=== PATIENT | male | born 1950 | race Caucasian/White ===

== ENCOUNTER 2019-09-01 07:54 | Outpatient (CLI) | payer OTHER, SELFPAY ==
--- NOTE | ~2019-09-01 | CT_ITS ---
EXAMINATION: CT abdomen pelvis w con DATE: 09/01/2019 08:55 INDICATION: Prostate cancer TECHNIQUE: Computed tomography (CT) of the abdomen and pelvis was performed with 100 cc Omnipaque 350 intravenous contrast. The dose-length product was 380.85 mGy-cm. Automated exposure control and iter ative reconstruction technique were employed. COMPARISON: None. FINDINGS: Lung bases are unremarkable. Heart size normal. No significant pleural or pericardial effus ion. Calcified granuloma in the spleen. The liver, pancreas, adrenal glands are unremarkable. There are bi lateral renal cysts. Gallbladder is present. No osteolytic or osteoblastic lesions. Nonobstructive mason wel gas pattern. There is atherosclerosis of the aorta. No free air or free fluid. Enlarged prostate gland. Bladder is decompressed. No abnormal pelvic masses or fluid collections. IMPRESSION: 1. No evidence for metastatic disease. 2: Enlarged prostate gland. Reviewed, dictated and finalized at location B.
--- NOTE | ~2019-09-01 | NM_ITS ---
EXAMINATION: NM bone scan whole body DATE: 09/01/2019 14:24 INDICATION: Prostate cancer TECHNIQUE: 25 mCi Tc-99m HDP was administered intravenously. Delayed whole-body scintigrams were obt ained. COMPARISON: CT abdomen and pelvis dated 09/01/2019 FINDINGS: Physiologic distribution of bone and soft tissue uptake. No suspicious photopenic defects or foci of abnormal increased uptake to suggest osseous metastatic disease. IMPRESSION: 1. Normal study. No evident metastatic disease. Reviewed, dictated and finalized at location A.
[2019-09-01 08:41] LABS: Estimated Glomerular Filt Rate 47
== END 2019-09-01 07:55 | disposition home or self-care (01) ==
LOC: ANHIMG 08:04
PROVIDERS: Visit Provider Urology
DX: C61 Malignant neoplasm of prostate (principal); N40.0 Benign prostatic hyperplasia without lower urinary tract symptoms
CPT/HCPCS: 36415; 74177; 78306; A9561; Q9967

== ENCOUNTER 2019-10-04 11:55 | Outpatient (CLI) | payer OTHER, SELFPAY ==
--- NOTE | ~2019-10-04 | XR_ITS ---
EXAMINATION: XR chest 2V DATE: 10/04/2019 13:36 INDICATION: Prostate cancer TECHNIQUE: PA and lateral views of the chest are obtained. COMPARISON: None available FINDINGS: The lungs are free of acute opacities. There is no pleural effusion or pneumothorax. The ca rdiomediastinal silhouette is normal. There is mild thoracic spondylosis. IMPRESSION: 1. No acute cardiopulmonary abnormality. Reviewed, dictated and finalized at location A.
--- NOTE | 2019-10-04 13:06 | ECG_ITS ---
Measurements Intervals [place] Rate: 62 P: 64 [place]: 167 QRS: -44 QRSD: 122 T: 23 QT: 412 QTc: 420 Interpretive Statements SINUS RHYTHM LEFT AXIS DEVIATION INCOMPLETE RIGHT BUNDLE BRANCH BLOCK BASELINE ARTIFACT- I, II, III, AVR, AVL, AVF BORDERLINE ECG Electronically Signed On 10-04-2019 13:31:45 CDT by Patel Rodriguez D.O.
[2019-10-04 13:59] LABS: Basophils Absolute Auto 0.1 K/mm3 (0.0-0.1); Basophils Percent Auto 0.9 % (0.2-1.2); Eosinophils Absolute Auto 0.2 K/mm3 (0-0.3); Eosinophils Percent Auto 3.1 % (0-4.4); Hematocrit 41.8 % (42.0-52.0); Hemoglobin 14.3 g/dL (14.0-18.0); Immature Granulocyte Absolute 0.02 K/mm3 (0.00-0.031); Immature Granulocyte Percent A 0.3 % (0-0.5); Lymphocytes Absolute Auto 1.94 K/mm3 (0.9-3.2); Lymphocytes Percent Auto 29.8 % (18.3-44.2); Mean Corpuscular HGB Conc 34.2 g/dl (32-36); Mean Corpuscular Hemoglobin 29.7 pg (26-34); Mean Corpuscular Volume 86.7 fl (80-100); Mean Platelet Volume 10.5 fl (7.4-10.4); Monocytes Absolute Auto 0.9 K/mm3 (0.1-0.6); Monocytes Percent Auto 13.5 % (2.6-8.5); Neutrophils Absolute Auto 3.4 K/mm3 (1.3-6.7); Neutrophils Percent Auto 52.4 % (45.5-73.1); Platelet Count Result 185 k/mm3 (150-375); Red Blood Count 4.82 M/mm3 (4.6-6.20); Red Cell Distribution Width 12.9 % (11.5-14.5); White Blood Count 6.5 K/mm3 (4.5-10.0)
[2019-10-04 14:00] LABS: Add Urine Microscopic? NO; Appearance Urine Clear (Clear); Bilirubin Urine Negative (Negative); Blood Urine Negative (Negative); Color Urine Straw (Yellow); Glucose Urine UA Negative (Negative); Ketones Urine Negative (Negative); Leukocyte Esterase Ur Negative LEU/UL (Negative); Nitrate Urine Negative (Negative); Protein Urine Negative (Negative); Specific Grav Ur 1.014 (1.001-1.035); Urobilinogen Urine Negative mg/dL (<2.0)
[2019-10-04 14:04] LABS: Prothrombin Time 12.6 Seconds (11.1-14.7)
[2019-10-04 14:05] LABS: Partial Thromboplastin Time 29.7 SECONDS (22.3-36.8)
[2019-10-04 14:07] LABS: Alanine Aminotransferase 18 U/L (4-50); Albumin Level 4.2 g/dL (3.5-5.1); Alkaline Phosphatase 91 U/L (38-126); Anion Gap 7 mmol/L (8-16); Aspartate Amino Transferase 26 U/L (17-59); Bilirubin,Total < 0.1 mg/dL (0.2-1.3); Blood Urea Nitrogen 18 mg/dL (9-20); Calcium 9.3 mg/dL (8.4-10.2); Carbon Dioxide 34 mmol/L (22-30); Chloride 99 mmol/L (98-107); Estimated Glomerular Filt Rate 51; Glucose 106 mg/dL (75-110); Potassium 3.9 mmol/L (3.4-5.0); Sodium 140 mmol/L (137-145)
== END 2019-10-04 11:56 | disposition home or self-care (01) ==
LOC: ANHSURGERY 11:57
PROVIDERS: PCP Internal Medicine; Visit Provider Urology
DX: C61 Malignant neoplasm of prostate (principal); Z01.812 Encounter for preprocedural laboratory examination; I45.10 Unspecified right bundle-branch block
CPT/HCPCS: 36415; 71046; 80053; 81003; 85025; 85610; 85730; 86850; 86900; 86901; 93005

== ENCOUNTER 2019-10-12 02:05 | Outpatient (CLI) | payer OTHER, SELFPAY ==
[2019-10-12 18:23] LABS: SARS-CoV-2 RNA PCR Negative
== END 2019-10-12 02:06 | disposition home or self-care (01) ==
LOC: ANHCOVIDDT 02:05
PROVIDERS: Visit Provider Urology
DX: Z01.812 Encounter for preprocedural laboratory examination (principal); Z20.828 Contact with and (suspected) exposure to other viral communicable diseases
CPT/HCPCS: 87635; C9803; U0003

== ENCOUNTER 2019-10-14 00:43 | Day surgery (SDC) | payer OTHER, SELFPAY ==
[2019-10-04 13:04] VITALS: BP 137/86; PULSE 64; RESP 16; TEMP 37.2; O2SAT 100
--- NOTE | 2019-10-07 13:36 | PM.IMHP ---
H&P: HPI History of Present Illness Date/Time: 10/07/19 13:36 Chief complaint: Prostate Ca Narrative: Rito Rodriguez is a 68 year old male who recently underwent evaluation for a PSA of 5.8. Prostate biopsy demonstrated 2 of 12 cores with Charlette score 3+4=7 and 4+3=7 adenocarcinoma. On ultrasonography his prostate measured 44.2 g.This equates to an unfavorable intermediate risk prostate cancer. Staging CT scan of the abdomen and pelvis and bone scan showed no evidence of metastatic disease. After a thorough discussion of the therapeutic options, including pelvic radiation, radical prostatectomy, active surveillance and androgen ablation he has elected for a prostatectomy. He is aware of the risk of this including, but not limited to, adverse cardiopulmonary events rectal injury erectile dysfunction and urinary incontinence. Review of Systems Cardiovascular: Cardiovascular: Denies chest pain, Denies lightheadedness, Denies palpitations and Denies dyspnea Respiratory: Respiratory: Denies dyspnea Gastrointestinal: Gastrointestinal: Denies diarrhea, Denies nausea and Denies vomiting Genitourinary: Genitourinary: Denies hematuria and Denies dysuria Endocrine: Endocrine: Denies palpitations PMFSH Social History Social History Smoking status: Never smoker Alcohol intake: never Substance use: never Spiritual care concerns: No Meds Home Medications and Allergies Home Medications Medication Instructions Recorded Confirmed Type alum-mag hydroxide-simeth [Maalox 7.5 ml PO QID PRN 10/04/19 10/04/19 History Maximum Strength] aspirin [Aspir-81] 81 mg PO DAILY 10/04/19 10/04/19 History calcium carbonate [Tums] 300 mg PO BID PRN 10/04/19 10/04/19 History cimetidine [Tagamet HB] 200 mg PO QID 10/04/19 10/04/19 History esomeprazole magnesium [Nexium] 20 mg PO DAILY 10/04/19 10/04/19 History fluticasone propionate 1 spray INTRANASAL DAILY 10/04/19 10/04/19 History lorazepam 1 mg PO DAILY PRN 10/04/19 10/04/19 History minoxidil [Rogaine] 1 ml TOPICAL BID 10/04/19 10/04/19 History dtgxtkiv-lck-FW-lycopen-lutein 1 tablet PO DAILY 10/04/19 10/04/19 History [Centrum Silver] olopatadine 1 drp OPHTHALMIC (EYE) QAM 10/04/19 10/04/19 History omega 1-hra-xqi-fish oil [[place]-3 1 cap PO DAILY 10/04/19 10/04/19 History Fish Oil] paroxetine HCl 40 mg PO QAM 10/04/19 10/04/19 History simethicone 250 mg PO TID 10/04/19 10/04/19 History triamterene-hydrochlorothiazid 1 tablet PO QAM 10/04/19 10/04/19 History Allergies Allergy/AdvReac Type Severity Reaction Status Date / Time Fish Containing Products Allergy Intermediate Rash Verified 10/04/19 12:23 Penicillins Allergy Unknown Unknown Verified 10/04/19 12:21 Sulfa (Sulfonamide Allergy Unknown RASH AND Unverified 10/04/19 12:21 Antibiotics) LEG PAIN Exam Const: General: no acute distress Resp: Effort & Inspection: normal respiratory effort GI: Inspection: non-distended GI Palp: No abdominal tenderness and No Guarding due to palpation present (GI) Auscultation: normal bowel sounds Assessment and Plan Assessment and plan (1) Prostate cancer: Code(s): C61 - Malignant neoplasm of prostate Status: Acute Assessment and Plan: Robotic assisted radical prostatectomy with bilateral pelvic lymphadenectomy.
[2019-10-14] VITALS (15 sets, daily range): BP systolic 108–156; BP diastolic 55–98; PULSE 77–94; RESP 14–20; TEMP 36.2–36.8; O2SAT 94–100; BMI 24.0
[2019-10-14] MEDS: LACTATED RINGERS 1,000 ML 30 ML IV CONT ×3 (06:37→11:01)
--- NOTE | 2019-10-14 06:43 | WPDANESEPPF ---
Anes - Initial Pre Proc Eval Procedure: Operation Date: 10/14/19 07:30 Proposed Procedures p Robotic Assisted Prostatectomy, Bilateral Pelvic Lymphadenectomy - Lenin Araujo MD Date/Time: 10/14/19 06:43 Surgeon: Lenin Araujo MD Pre Op Diagnosis: Prostate Ca Patient Data Age: 68 Gender: M Height: 5 ft 9 in Weight: 73.7 kg Last Vital Signs Temp 37.2 C 10/04/19 13:04 Pulse 64 10/04/19 13:04 Resp 16 10/04/19 13:04 BP 137/86 10/04/19 13:04 Pulse Ox 100 10/04/19 13:04 Allergies Allergy/AdvReac Type Severity Reaction Status Date / Time Fish Containing Products Allergy Intermediate Rash Verified 10/14/19 06:21 Penicillins Allergy Unknown Unknown Verified 10/14/19 06:21 Sulfa (Sulfonamide Allergy Unknown RASH AND Verified 10/14/19 06:21 Antibiotics) LEG PAIN Home Medications Medication Instructions Recorded Confirmed Type alum-mag hydroxide-simeth [Maalox 7.5 ml PO QID PRN 10/04/19 10/14/19 History Maximum Strength] aspirin [Aspir-81] 81 mg PO DAILY 10/04/19 10/14/19 History calcium carbonate [Tums] 300 mg PO BID PRN 10/04/19 10/14/19 History cimetidine [Tagamet HB] 200 mg PO QID 10/04/19 10/14/19 History esomeprazole magnesium [Nexium] 20 mg PO DAILY 10/04/19 10/14/19 History fluticasone propionate 1 spray INTRANASAL DAILY 10/04/19 10/14/19 History lorazepam 1 mg PO DAILY PRN 10/04/19 10/14/19 History minoxidil [Rogaine] 1 ml TOPICAL BID 10/04/19 10/14/19 History jezzdwyu-wgz-SL-lycopen-lutein 1 tablet PO DAILY 10/04/19 10/14/19 History [Centrum Silver] olopatadine 1 drp OPHTHALMIC (EYE) QAM 10/04/19 10/14/19 History omega 4-alb-baw-fish oil [[place]-3 1 cap PO DAILY 10/04/19 10/14/19 History Fish Oil] paroxetine HCl 40 mg PO QAM 10/04/19 10/14/19 History simethicone 250 mg PO TID 10/04/19 10/14/19 History triamterene-hydrochlorothiazid 1 tablet PO QAM 10/04/19 10/14/19 History Patient hx anesthesia problems: none Family hx anesthesia problems: none [facility] Past Medical History Medical History Anxiety Depression GERD (gastroesophageal reflux disease) Hypertension Prostate cancer Social History Social History Smoking status: Never smoker Alcohol intake: never Substance use: never Living arrangements: alone Spiritual care concerns: No Anes - Eval Final PreProcedure Day of Procedure 10/14/19 06:43 Patient weight: normal Heart: regular rate and rhythm Lungs: clear to auscultation Airway: Mallampati scale class III Neurological: alert and oriented Last oral intake: >/= 8 hours ASA classification: III Emergent: no Anesthetic plan: proceed Anesthesia type and monitoring: general ETT and standard monitoring Informed Consent: The patient's anesthetic plan and its attendant risks and benefits were discussed with the patient/family/POA. Questions were solicited and answers provided to the satisfaction of the patient/family/POA.
--- NOTE | 2019-10-14 06:43 | SUR.PREOP ---
DR HAQUE NOTIFIED OF PT'S SORE THROAT.
--- NOTE | 2019-10-14 07:21 | WPDHPUPDATE1 ---
History and Physical Update Update Date/Time: 10/14/19 07:21 History and Physical has been reviewed, including an updated exam of the patient. There are NO changes in the patient's condition. Risks, benefits, and alternatives have been discussed and questions answered. Patient agrees to proceed with procedure.
[2019-10-14] MEDS: levoFLOXacin 500 MG/D5W 100 ML 500 MG/100 ML BAG 100 MG IVPB (07:26)
--- NOTE | 2019-10-14 10:53 | PM.PROC ---
Procedure Note - Detailed Date of procedure: 10/14/19 Pre-op diagnosis: Prostate Ca Post-op diagnosis: same Procedure performed: 1. Robotic assisted, bilateral nerve-sparing radical prostatectomy 2. Bilateral pelvic lymphadenectomy. Description of procedure: The patient was brought to the operative suite, where he was prepped and draped in routine sterile fashion while in a dorsal lithotomy, deep Trendelenburg position. A supraumbilical 10 mm trocar was placed after insufflation of the abdomen with a Veress needle. Three robotic ports were then placed under direct vision. Two of these were placed in the right lower quadrant - 10 cm and 20 cm lateral to, and in line with, the umbilicus. A third robotic trocar was placed 10 cm to the left of the umbilicus, and 20 cm to the left of the umbilicus, a 12 mm standard laparoscopic trocar was placed to be used as an email marketing assistant port. Lastly, a 5 mm trocar was placed in the left upper quadrant midway between the umbilicus and the left robotic trocar. Attention was then turned to the prostatectomy. I opted for a posterior approach in this patient. An incision was made in the parietal peritoneum along the posterior bladder/posterior prostate about 2 cm above the reflection of the peritoneum over the anterior rectum. The seminal vesicles and vas deferens were immediately identified. Dissection is undertaken in a fashion so as to avoid electrocautery as much as possible, particularly near the tips of the seminal vesicles. Dissection was also carried out in the midline so as to avoid any encounters with the ureters. The vas deferens and the seminal vesicles were dissected in their entirety to the base of the prostate. The plane anterior to Denoviller's fascia, anterior to the rectum and posterior to the prostate was then developed. I then dropped the bladder by incising the anterior parietal peritoneum just lateral to the median umbilical ligaments bilaterally. The bladder was dropped from the anterior abdominal and pelvic wall. The endopelvic fascia was identified and incised bilaterally, allowing for dissection of the posterior-lateral aspect of the prostate. The puboprostatic ligaments were transected near their origin from the posterior pubic ramus. This posterior lateral dissection of the prostate is also undertaken in a fashion so as to avoid electrocautery as much as possible. The dorsal vein of the penis is then secured with an 0 -Vicryl ligature. Attention is then turned to the bladder neck. The anterior bladder neck is incised at the vesico-prostatic junction. The previously placed urethral catheter was drawn through the urethrotomy. A very small bladder neck was maintained throughout the remainder of this dissection. The posterior bladder neck was incised in a fashion so as to avoid any injury to the ureteral orifices. Again, the small aperture of the bladder neck was maintained. The previously dissected vas deferens and the seminal vesicles were brought through the posterior bladder neck incision. The lateral prostatic pedicles were then carefully dissected from the lateral aspect of the prostate bilaterally. The prostatic pedicles were secured with Weck clips and transected. The neurovascular bundles were carefully dissected from the posterior-lateral aspect of the prostate. The dorsal vein of the penis was incised with electrocautery. Using cold scissors, the urethra was incised. After withdrawing the previously placed urethral catheter, the posterior urethra was sharply incised, as was the rectalurethralis muscle. Attention was then turned to a bilateral pelvic lymphadenectomy. The limits of this dissection were similar bilaterally. Specifically, the limits were the bifurcation of the common iliac vein proximally, the inguinal ligament distally, the obturator nerve posteriorly and the anterior aspect to the external iliac vein laterally. This dissection was undertaken with care to avoid any injury to the
--- NOTE | 2019-10-14 12:55 | PC.NURSE ---
This patient, Rito Rodriguez, was admitted to 3 Med Surg Room 309-01. Patient/family oriented to hospital policies and general routines including ID bracelet, bed and alarms, visiting hours, pain management, procedures, bathroom and other care routines, personal items, smoking policy, room service/diet, and visiting hours. Valuables list has been completed.Report received from Marjorie STAPLETON. Information on how to activate the Rapid Response Team has been discussed. Patient/Family are encouraged to report perceived risks to care and to ask questions if they do not understand what they are told or what they should do.
[2019-10-14] MEDS: LACTATED RINGERS 1,000 ML 125 ML IV CONT ×2 (14:44→21:27)
[2019-10-14] MEDS: HYOSCYAMINE SULFATE 0.125 MG TABLET SUBLINGUAL (14:52)
[2019-10-14] MEDS: KETOROLAC 15 MG/ML VIAL (*BKC) IV PUSH (21:20)
[2019-10-14] MEDS: FAMOTIDINE 20 MG TABLET PO (21:20)
[2019-10-14] MEDS: LORazepam 1 MG TABLET PO (21:20)
[2019-10-14] MEDS: CALCIUM CARBONATE (TUMS) 500 MG (200 MG ELEMENTAL) PO (23:32)
[2019-10-15 02:00] VITALS: BP 120/58; PULSE 81; RESP 16; TEMP 36.4; O2SAT 95
[2019-10-15] MEDS: LACTATED RINGERS 1,000 ML 125 ML IV CONT (04:53)
[2019-10-15 06:00] VITALS: BP 105/56; PULSE 71; RESP 16; TEMP 36.7; O2SAT 99
[2019-10-15 06:48] LABS: Anion Gap 5 mmol/L (8-16); Blood Urea Nitrogen 15 mg/dL (9-20); Calcium 8.1 mg/dL (8.4-10.2); Carbon Dioxide 31 mmol/L (22-30); Chloride 98 mmol/L (98-107); Estimated CRCL calculation 59 ml/min; Estimated Glomerular Filt Rate > 60; Glucose 131 mg/dL (75-110); Potassium 3.5 mmol/L (3.4-5.0); Sodium 134 mmol/L (137-145)
--- NOTE | 2019-10-15 07:01 | WPDUROPN2 ---
Progress Note: A&P Assessment and Plan (1) Prostate cancer: Code(s): C61 - Malignant neoplasm of prostate Status: Acute Assessment and Plan: Doing well POD #1 s/p RALP. Increase diet/activity. Likely home later today. Subjective Subjective Date/Time Seen: 10/15/19 07:01 POD #1 RALP - comfortable, tolerating diet. Review of Systems Cardiovascular: Cardiovascular: Denies chest pain, Denies lightheadedness, Denies palpitations and Denies dyspnea Respiratory: Respiratory: Denies dyspnea Gastrointestinal: Gastrointestinal: Denies diarrhea, Denies nausea and Denies vomiting Genitourinary: Genitourinary: Denies hematuria and Denies dysuria Endocrine: Endocrine: Denies palpitations Exam Const: General: no acute distress Resp: Effort & Inspection: normal respiratory effort GI: Inspection: non-distended GI Palp: No abdominal tenderness and No Guarding due to palpation present (GI) Auscultation: normal bowel sounds Objective Data Vital Signs Vital Signs: Vital Signs - 24 hr 10/14/19 10:46 10/14/19 11:00 10/14/19 11:15 Temperature 97.1 F L Pulse Rate 82 87 89 Respiratory Rate 15 18 19 Blood Pressure 135/57 L 139/75 122/76 Pulse Oximetry 99 98 100 10/14/19 11:30 10/14/19 11:45 10/14/19 12:00 Temperature 97.9 F 98.2 F 98.3 F Pulse Rate 88 87 88 Respiratory Rate 14 16 16 Blood Pressure 149/98 H 127/83 128/69 Pulse Oximetry 100 100 10/14/19 12:15 10/14/19 12:30 10/14/19 12:59 Temperature 97.3 F L 97.5 F L Pulse Rate 85 88 91 Respiratory Rate 16 16 16 Blood Pressure 122/71 126/63 113/65 Pulse Oximetry 95 95 95 10/14/19 13:29 10/14/19 14:29 10/14/19 16:00 Temperature 97.3 F L 97.9 F 98.0 F Pulse Rate 93 94 90 Respiratory Rate 18 18 16 Blood Pressure 108/58 L 122/66 125/65 Pulse Oximetry 94 96 98 10/14/19 20:00 10/14/19 21:36 10/15/19 02:00 Temperature 98.3 F 97.6 F Pulse Rate 89 89 81 Respiratory Rate 20 20 16 Blood Pressure 119/55 L 120/58 L Pulse Oximetry 98 98 95 10/15/19 06:00 Temperature 98.1 F Pulse Rate 71 Respiratory Rate 16 Blood Pressure 105/56 L Pulse Oximetry 99 Intake/Output Intake/Output: Intake & Output 10/12/19 10/13/19 10/14/19 10/15/19 23:59 23:59 23:59 23:59 Intake Total 2070 1500 Output Total 525 1100 Balance 1545 400 Meds/Results Medications: Active Medications Generic Name Dose Route Start Last Admin Trade Name Freq PRN Reason Stop Dose Admin Al Hydrox/Mg Hydrox/Simethicone 7.5 ml 10/14/19 20:01 Mylanta PO QID PRN Indigestion Calcium Carbonate 200 mg 10/14/19 20:01 10/14/19 23:32 Tums PO 200 mg BID PRN Administration Indigestion Famotidine 20 mg 10/14/19 21:00 10/14/19 21:20 Pepcid PO 20 mg Q12HR CHHAYA Administration Fluticasone Propionate 1 spray 10/15/19 09:00 Flonase 0.05% Nasal [place] NASAL DAILY CHHAYA Hyoscyamine 0.125 mg 10/14/19 12:44 10/14/19 14:52 Levsin Tablet SUBLINGUAL 0.125 mg Q4H PRN Administration Bladder Spasm Lactated Ringer's 1,000 mls @ 125 mls/hr 10/14/19 12:44 10/15/19 04:53 Lr - Lactated Ringers Iv IV CONT 125 mls/hr .Q8H CHHAYA Administration Acetaminophen 1,000 mg in 100 mls @ 400 mls/hr 10/14/19 16:50 Ofirmev 1,000 Mg Ivpb IVPB 10/15/19 16:51 Q6H PRN Pain Rated 1-3 Ketorolac Tromethamine 15 mg 10/14/19 16:51 10/14/19 21:20 Toradol Inj IV PUSH 15 mg Q6H PRN Administration Pain Rated 4-6 Levofloxacin 500 mg 10/15/19 09:00 Levaquin Tab PO DAILY CHHAYA Lorazepam 1 mg 10/14/19 12:44 10/14/19 21:20 Ativan Tablet PO 1 mg DAILY PRN Administration Anxiety Naloxone HCl 0.1 mg 10/14/19 12:44 Narcan IV PUSH Q2M PRN Opiate Reversal Non-Formulary Medication 1 drop 10/15/19 09:00 Olopatadine EACH EYE 11/14/19 09:01 QAM CHHAYA Paroxetine HCl 40 mg 10/15/19 09:00 Paxil PO QAM CHHAYA Simethicone 250 mg
[2019-10-15 07:02] LABS: Hematocrit 32.2 % (42.0-52.0); Hemoglobin 10.9 g/dL (14.0-18.0)
[2019-10-15] MEDS: SIMETHICONE 125 MG CHEW TAB 250 MG PO (08:07)
[2019-10-15] MEDS: PARoxetine 20 MG TABLET 40 MG PO (08:08)
[2019-10-15] MEDS: TRIAMTERENE 37.5 MG/HCTZ 25 MG (MAXZIDE) TABLET 1 TAB PO (08:08)
[2019-10-15] MEDS: CALCIUM CARBONATE (TUMS) 500 MG (200 MG ELEMENTAL) PO (08:08)
[2019-10-15] MEDS: FLUTICASONE PROPIONATE 0.05% NA SPR 16 GM BTL (*BKC) 1 SPRAY NASAL (08:09)
[2019-10-15] MEDS: FAMOTIDINE 20 MG TABLET PO (08:09)
[2019-10-15] MEDS: KETOROLAC 15 MG/ML VIAL (*BKC) IV PUSH (08:15)
[2019-10-15 10:00] VITALS: BP 110/61; PULSE 74; RESP 18; TEMP 36.8; O2SAT 98
--- NOTE | 2019-10-15 10:09 | WPDANESPN ---
Anes - Prog Note Post-Op Date/Time: 10/15/19 10:09 Cardiovascular status: normal Respiratory status: normal Airway patency: baseline Mental status: baseline Post-Op hydration status: normal Vital Signs: Last Vital Signs Temp 36.7 C 10/15/19 06:00 Pulse 71 10/15/19 06:00 Resp 16 10/15/19 06:00 BP 105/56 L 10/15/19 06:00 Pulse Ox 99 10/15/19 06:00 I/O: Intake & Output 10/14/19 10/15/19 10/15/19 23:59 07:59 15:59 Intake Total 1920 1500 240 Output Total 450 1100 Balance 1470 400 240 Laboratory Tests 10/15/19 06:25 10/15/19 06:25 10/15/19 10/15/19 06:25 06:25 Hgb 10.9 L D Hct 32.2 L Sodium 134 L Potassium 3.5 Chloride 98 Carbon Dioxide 31 H Anion Gap 5 L BUN 15 Creatinine 1.10 Estim Creat Clear Calc 59 Estimated GFR > 60 Glucose 131 H Calcium 8.1 L Post-procedural complaints: none Patient Feedback: Patient satisfied with anesthetic care.
--- NOTE | 2019-10-15 13:05 | PM.DS ---
DS: Admitting Diagnosis Admitting Diagnosis Admitting Diagnosis: Prostate Ca DS: Discharge Diagnosis Discharge Diagnosis (1) Prostate cancer: Code(s): C61 - Malignant neoplasm of prostate Status: Acute DS: Summary Time Spent with Patient Time attestation: Total time spent providing and/or coordinating discharge services: 15min. Alternative treatment options (including active surveillance, radiation therapy in its various forms and androgen ablation) have been discussed. We've also discussed complications of this procedure including, but not limited to, failure to control his cancer, adverser cardiopulmonary events, rectal injury, need to convert to an open procedure, urinary incontinence and erectile dysfunction. Exam Const: General: no acute distress Resp: Effort & Inspection: normal respiratory effort GI: Inspection: non-distended GI Palp: No abdominal tenderness and No Guarding due to palpation present (GI) Auscultation: normal bowel sounds DS: Data Data Completed and Pending Pending studies at discharge: Pending at discharge 10/14/19 09:13 Surgical [PTH] Routine Labs on day of discharge: Labs from last 24 hours 10/15/19 10/15/19 06:25 06:25 Hgb 10.9 L D Hct 32.2 L Sodium 134 L Potassium 3.5 Chloride 98 Carbon Dioxide 31 H Anion Gap 5 L BUN 15 Creatinine 1.10 Estim Creat Clear Calc 59 Estimated GFR > 60 Glucose 131 H Calcium 8.1 L Discharge Plan Discharge Attending physician on discharge: Lenin Araujo Discharging Clinician: Lenin Araujo Patient Disposition: Home, Self-Care Activity: other - see discharge instructions Diet: other - see discharge instructions Discharge Instructions: 1) Parr catheter -> leg bag / bedside bag at night. 2) No lifting/straining >15lbs. x3 weeks. 3) No driving x1-week. 4) Resume normal, pre-operative diet. 5) My office will contact regarding follow-up in 1-week with cystogram. Patient Instructions: Antibiotic Form, Pain Management (DC), Robot Assisted Laparoscopic Prostatectomy (DC) Stand Alone Forms: General Discharge Information Follow-up/Referrals: Lenin Araujo MD [Physician] - Discharge Medications: New hydrocodone-acetaminophen 5-325 mg tablet 1 - 2 tablet PO Q6H PRN (Reason: pain) Qty: 20 RF: 0 hyoscyamine sulfate 0.125 mg tablet 0.125 mg PO Q6H PRN (Reason: bladder spasms) Qty: 20 RF: 2 ciprofloxacin HCl 500 mg tablet 500 mg PO Q12H Qty: 10 RF: 0 docusate sodium [Colace] 100 mg capsule 100 mg PO DAILY Qty: 30 RF: 0 Continued calcium carbonate [Tums] 300 mg (750 mg) Tablet,Chewable 300 mg PO BID PRN (Reason: Indigestion) RF: 0 cimetidine [Tagamet HB] 200 mg Tablet 200 mg PO QID RF: 0 triamterene-hydrochlorothiazid 37.5-25 mg tablet 1 tablet PO QAM RF: 0 lorazepam 1 mg tablet 1 mg PO DAILY PRN (Reason: Anxiety) RF: 0 paroxetine HCl 40 mg tablet 40 mg PO QAM RF: 0 fluticasone propionate 50 mcg/actuation spray,suspension 1 spray INTRANASAL DAILY RF: 0 minoxidil [Rogaine] 2 % Solution 1 ml TOPICAL BID RF: 0 esomeprazole magnesium [Nexium] 20 mg Capsule,Delayed Release(Dr/Ec) 20 mg PO DAILY RF: 0 olopatadine 0.2 % drops 1 drp ophthalmic (eye) QAM RF: 0 simethicone 250 mg Capsule 250 mg PO TID RF: 0 alum-mag hydroxide-simeth [Maalox Maximum Strength] 400-400-40 mg/5 mL Suspension 7.5 ml PO QID PRN (Reason: Indigestion) RF: 0 Held aspirin [Aspir-81] 81 mg Tablet,Delayed Release (Dr/Ec) 81 mg PO DAILY RF: 0 Hold Instructions: Resume on 10/20/19. Centrum Silver 0.4-300-250 mg-mcg-mcg Tablet 1 tablet PO DAILY RF: 0 Hold Instructions: Resume on 10/20/19. No Action [place]-3 Fish Oil 910-1,400 mg Capsule 1 cap PO DAILY RF: 0 Date of admission: 10/14/19 12:44 Primary Care Provider: MD DELGADO RICHARD C. Admitting Provider: Lenin Araujo
[2019-10-15 14:00] VITALS: BP 119/51; PULSE 78; RESP 16; TEMP 36.9; O2SAT 98
--- NOTE | 2019-10-15 15:38 | PC.NURSE ---
Pt is A&O x 3. Pt has discharge orders. Pt has had IV removed, and discharge paperwork reviewed. Opportunities for questions provided, and pt exhibited good understanding. Pt was taken by wheelchair to the front of the building for discharge home with family.
== END 2019-10-15 15:40 | disposition home or self-care (01) ==
LOC: ANHSURGERY 06:01 → ANH3MEDSUR 18:04 → ANHSURGERY 10-15 14:27 → ANH3MEDSUR 10-15 14:43
PROVIDERS: PCP Internal Medicine; Visit Provider Urology
PROC: 0VT04ZZ Resection of Prostate, Percutaneous Endoscopic Approach (ICD-10-PCS; CPT 55867; principal; 2019-10-14 07:30)
DX: C61 Malignant neoplasm of prostate (principal); I10 Essential (primary) hypertension; K21.9 Gastro-esophageal reflux disease without esophagitis; F41.8 Other specified anxiety disorders; Z79.82 Long term (current) use of aspirin
CPT/HCPCS: 55866; 38571; S2900; 36415; 80048; 85014; 85018; 88305; 88307; A9270; J1100; J1170; J1885; J1956; J2250; J2405; J2704; J2710; J3010; J7030; J7120; Q9968

== ENCOUNTER 2019-10-22 12:36 | Outpatient (CLI) | payer OTHER, SELFPAY ==
--- NOTE | ~2019-10-22 | XR_ITS ---
EXAMINATION: XR cystogram DATE: 10/22/2019 13:37 INDICATION: Prostate cancer status post prostatectomy TECHNIQUE: Water-soluble contrast was gravity-infused through the patient's Parr catheter. Multiple fluoroscopic images were obtained. Fluoroscopy exposure time was 1.0 minutes. The DAP for this proced ure was 15.183 Gycm2. COMPARISON: None. FINDINGS: Bladder is normal in contour. No bladder leak is identified. The bowel gas pattern is roger l. Phleboliths are present in the pelvis. IMPRESSION: 1. No evidence of bladder leak. Reviewed, dictated and finalized at location A.
== END 2019-10-22 12:37 | disposition home or self-care (01) ==
PROVIDERS: Visit Provider Urology
DX: C61 Malignant neoplasm of prostate (principal)
CPT/HCPCS: 51600; 74430; Q9967

== ENCOUNTER 2021-09-25 00:07 | Day surgery (SDC) | payer OTHER, SELFPAY ==
[2021-09-10 10:05] VITALS: BMI 23.8
[2021-09-25 06:47] VITALS: BP 132/76; PULSE 59; RESP 18; TEMP 36.8; O2SAT 100
[2021-09-25] MEDS: LACTATED RINGERS 1,000 ML 150 ML IV CONT (06:55)
--- NOTE | 2021-09-25 07:27 | PM.IMHP ---
H&P: HPI History of Present Illness Date/Time: 09/25/21 07:27 Chief Complaint: Bloating Narrative: this is a 70-year-old white male patient who presents for EGD. Patient has multiple abdominal complaints including bloating dyspepsia. He states this happens frequently after eating almost all meals. Reports his bowel habits are very irregular. Often having a bowel movement every 5 days or so. Recently has been treated with Linzess. Patient has tried other laxatives and typically they work for brief period in. . He has had no bleeding. His weight has remained stable. Previous colonoscopy several years ago was unremarkable. An EGD is requested will be performed today. Patient currently is on Nexium 40mg p.o. daily Review of Systems Review of Systems: review of systems noncontributory. [facility] Past Medical History Medical History (Updated 09/25/21 @ 07:29 by Lasha Cedeno MD) Anxiety Depression GERD (gastroesophageal reflux disease) Hypertension Prostate cancer Social History Social History Smoking status: Never smoker Alcohol intake: never Substance use: never Substance use type: does not use Living arrangements: alone Gender identity (if verbalized by the patient): Male Spiritual care concerns: No Meds Home Medications and Allergies Home Medications Medication Instructions Recorded Confirmed Type aluminum-mag hydroxide-simethicone 7.5 ml PO QID PRN Indigestion 10/04/19 09/25/21 History 400 mg-400 mg-40 mg/5 mL oral susp (Maalox Maximum Strength) esomeprazole magnesium 20 mg 40 mg PO DAILY 10/04/19 09/25/21 History capsule,delayed release (Nexium) fluticasone propionate 50 1 spray intranasal DAILY 10/04/19 09/25/21 History mcg/actuation nasal spray,suspension lorazepam 1 mg tablet 1 mg PO DAILY PRN Anxiety 10/04/19 09/25/21 History minoxidil 2 % topical solution 1 ml topical BID 10/04/19 09/25/21 History (Rogaine) ivwlqptg-mlw-gltcl acid 0.4 1 tablet PO DAILY 10/04/19 09/25/21 History mg-lycopene 300 mcg-lutein 250 mcg tablet (Centrum Silver) olopatadine 0.2 % eye drops 1 drp ophthalmic (eye) QAM 10/04/19 09/25/21 History (Pataday Once Daily Relief) paroxetine HCl 40 mg tablet 40 mg PO QAM 10/04/19 09/25/21 History simethicone 250 mg capsule 250 mg PO TID PRN bloating 10/04/19 09/25/21 History triamterene 37.5 1 tablet PO QAM 10/04/19 09/25/21 History mg-hydrochlorothiazide 25 mg tablet linaclotide 145 mcg capsule 145 mcg PO DAILY #90 caps 08/22/21 09/25/21 Rx (Linzess) docusate sodium 100 mg capsule 100 mg PO DAILY PRN Constipation 09/10/21 09/25/21 History Allergies Allergy/AdvReac Type Severity Reaction Status Date / Time Fish Containing Products Allergy Intermediate Rash Verified 09/25/21 06:45 Penicillins Allergy Unknown Unknown Verified 09/25/21 06:45 Sulfa (Sulfonamide Allergy Unknown RASH AND Verified 09/25/21 06:45 Antibiotics) LEG PAIN Vital Signs Vital Signs - 24 hr 09/25/21 06:47 Temperature 98.3 F Pulse Rate 59 L Respiratory Rate 18 Blood Pressure 132/76 Pulse Oximetry 100 Oxygen Delivery Room Air Exam Narrative: Physical exam reveals patient be alert. Vital signs stable. HEENT exam is unremarkable. Patient is anicteric. Lungs are clear to auscultation and percussion. Heart is without murmur or extra sounds. Abdomen bowel sounds are present soft no localized tenderness. Extremities are without clubbing cyanosis or edema. Digital rectal exam normal. Assessment and Plan Assessment and plan (1) Irritable bowel syndrome with constipation: Code(s): K58.1 - Irritable bowel syndrome with constipation Status: Acute Assessment and Plan: Patient with irregular bowel habits. Currently has bowel movements every 5 days despite taking Linzess. He may benefit from adding Metamucil or other stool softener on a daily basis. (2) Bloati
--- NOTE | 2021-09-25 07:54 | WPDANESEPPF ---
Anes - Initial Pre Proc Eval Procedure: Operation Date: 09/25/21 08:00 Proposed Procedures p Esophagogastroduodenoscopy - Lasha Cedeno MD Date/Time: 09/25/21 07:54 Surgeon: Lasha Cedeno MD Pre Op Diagnosis: GERD, bloating Patient Data Age: 70 Gender: M Height: 1.75 m Weight: 73.8 kg Last Vital Signs Temp 98.3 F 09/25/21 06:47 Pulse 59 L 09/25/21 06:47 Resp 18 09/25/21 06:47 BP 132/76 09/25/21 06:47 Pulse Ox 100 09/25/21 06:47 O2 Del Method Room Air 09/25/21 06:47 Allergies Allergy/AdvReac Type Severity Reaction Status Date / Time Fish Containing Products Allergy Intermediate Rash Verified 09/25/21 06:45 Penicillins Allergy Unknown Unknown Verified 09/25/21 06:45 Sulfa (Sulfonamide Allergy Unknown RASH AND Verified 09/25/21 06:45 Antibiotics) LEG PAIN Home Medications Medication Instructions Recorded Confirmed Type aluminum-mag hydroxide-simethicone 7.5 ml PO QID PRN Indigestion 10/04/19 09/25/21 History 400 mg-400 mg-40 mg/5 mL oral susp (Maalox Maximum Strength) esomeprazole magnesium 20 mg 40 mg PO DAILY 10/04/19 09/25/21 History capsule,delayed release (Nexium) fluticasone propionate 50 1 spray intranasal DAILY 10/04/19 09/25/21 History mcg/actuation nasal spray,suspension lorazepam 1 mg tablet 1 mg PO DAILY PRN Anxiety 10/04/19 09/25/21 History minoxidil 2 % topical solution 1 ml topical BID 10/04/19 09/25/21 History (Rogaine) lbabdpky-tyz-dgxnf acid 0.4 1 tablet PO DAILY 10/04/19 09/25/21 History mg-lycopene 300 mcg-lutein 250 mcg tablet (Centrum Silver) olopatadine 0.2 % eye drops 1 drp ophthalmic (eye) QAM 10/04/19 09/25/21 History (Pataday Once Daily Relief) paroxetine HCl 40 mg tablet 40 mg PO QAM 10/04/19 09/25/21 History simethicone 250 mg capsule 250 mg PO TID PRN bloating 10/04/19 09/25/21 History triamterene 37.5 1 tablet PO QAM 10/04/19 09/25/21 History mg-hydrochlorothiazide 25 mg tablet linaclotide 145 mcg capsule 145 mcg PO DAILY #90 caps 08/22/21 09/25/21 Rx (Linzess) docusate sodium 100 mg capsule 100 mg PO DAILY PRN Constipation 09/10/21 09/25/21 History Patient hx anesthesia problems: none Family hx anesthesia problems: none Results Review: All pre-operative results and documents have been reviewed as part of the pre-operative evaluation. [facility] Past Medical History Medical History (Updated 09/25/21 @ 07:29 by Lasha Cedeno MD) Anxiety Depression GERD (gastroesophageal reflux disease) Hypertension Prostate cancer Social History Social History Smoking status: Never smoker Alcohol intake: never Substance use: never Substance use type: does not use Living arrangements: alone Gender identity (if verbalized by the patient): Male Spiritual care concerns: No Anes - Eval Final PreProcedure Day of Procedure 09/25/21 07:54 Patient weight: normal Heart: regular rate and rhythm Lungs: clear to auscultation Airway: Mallampati scale class III Neurological: alert and oriented Last oral intake: >/= 8 hours ASA classification: III Emergent: no Anesthetic plan: proceed Anesthesia type and monitoring: general GIVS and standard monitoring Results Review: All pre-operative results and documents have been reviewed as part of the pre-operative evaluation. Informed Consent: The patient's anesthetic plan and its attendant risks and benefits were discussed with the patient/family/POA. Questions were solicited and answers provided to the satisfaction of the patient/family/POA.
[2021-09-25 08:14] VITALS: BP 112/58; PULSE 61; RESP 20; O2SAT 100
[2021-09-25 08:24] VITALS: BP 131/83; PULSE 54; RESP 22; O2SAT 100
[2021-09-25 08:34] VITALS: BP 148/89; PULSE 51; RESP 22; O2SAT 100
== END 2021-09-25 08:45 | disposition home or self-care (01) ==
PROVIDERS: Visit Provider Internal Medicine Gastroenterology
PROC: 0DJ08ZZ Inspection of Upper Intestinal Tract, Via Natural or Artificial Opening Endoscopic (ICD-10-PCS; CPT 43235; principal; 2021-09-25 08:00)
DX: R14.0 Abdominal distension (gaseous) (principal); K21.9 Gastro-esophageal reflux disease without esophagitis; F41.9 Anxiety disorder, unspecified; F32.A Depression, unspecified; I10 Essential (primary) hypertension; Z85.46 Personal history of malignant neoplasm of prostate; R10.13 Epigastric pain; K58.1 Irritable bowel syndrome with constipation
CPT/HCPCS: 43239; 87081; J2704; J7120

== ENCOUNTER 2021-10-05 18:38 | Emergency (ER) | payer OTHER, SELFPAY ==
[2021-10-05 18:44] VITALS: BP 152/89; PULSE 74; RESP 16; TEMP 37.2; O2SAT 100
--- NOTE | 2021-10-05 18:51 | ED.WOUNDLAC ---
HPI - Wound/Laceration General Chief Complaint: Skin/Abscess/Foreign Body Stated Complaint: insect bite Time Seen by Provider: 10/05/21 18:51 Source: patient Mode of arrival: ambulatory Limitations: no limitations History of Present Illness HPI narrative: 70 y/o male presented for c/o right foot swelling after insect sting yesterday around 1600. States it has continued to swell. Endorses one month ago insect sting took about 2 weeks to heal so he is seeking treatment sooner. Endorses pain and itching is mild. Taking Benadryl PRN. Denies lip/tongue/throat swelling or difficulty breathing. Related Data Home Medications Medication Instructions Recorded Confirmed aluminum-mag hydroxide-simethicone 7.5 ml PO QID PRN Indigestion 10/04/19 10/05/21 400 mg-400 mg-40 mg/5 mL oral susp (Maalox Maximum Strength) fluticasone propionate 50 1 spray intranasal DAILY 10/04/19 10/05/21 mcg/actuation nasal spray,suspension lorazepam 1 mg tablet 1 mg PO DAILY PRN Anxiety 10/04/19 10/05/21 minoxidil 2 % topical solution 1 ml topical BID 10/04/19 10/05/21 (Rogaine) jamdjqlc-jmk-yheyy acid 0.4 1 tablet PO DAILY 10/04/19 10/05/21 mg-lycopene 300 mcg-lutein 250 mcg tablet (Centrum Silver) olopatadine 0.2 % eye drops 1 drp ophthalmic (eye) QAM 10/04/19 10/05/21 (Pataday Once Daily Relief) paroxetine HCl 40 mg tablet 40 mg PO QAM 10/04/19 10/05/21 simethicone 250 mg capsule 250 mg PO TID PRN bloating 10/04/19 10/05/21 triamterene 37.5 1 tablet PO QAM 10/04/19 10/05/21 mg-hydrochlorothiazide 25 mg tablet Allergies Allergy/AdvReac Type Severity Reaction Status Date / Time Fish Containing Products Allergy Intermediate Rash Verified 10/05/21 18:52 Penicillins Allergy Unknown Unknown Verified 10/05/21 18:52 Sulfa (Sulfonamide Allergy Unknown RASH AND Verified 10/05/21 18:52 Antibiotics) LEG PAIN Review of Systems Review of Systems: CONSTITUTIONAL: Denies body aches, fever, chills, or sweats. EYES: Denies visual changes, redness, or discharge. ENT: Denies rhinorrhea, congestion CARDIOVASCULAR: Denies chest pain, palpitations, or edema. RESPIRATORY: Denies cough or dyspnea. SKIN: right foot redness swelling MUSCULOSKELETAL: Denies back pain, joint pain, or myalgia. NEUROLOGIC: Denies headache PMF Past Medical History Medical History Anxiety Depression GERD (gastroesophageal reflux disease) Hypertension Prostate cancer Regurgitation of food Retained food in stomach Social History Social History Smoking status: Never smoker Alcohol intake: never Substance use: never Substance use type: does not use Gender identity (if verbalized by the patient): Male Spiritual care concerns: No Comments At time of signature, I have reviewed and agree with nursing past medical, surgical, social and family history unless otherwise noted. Please see nursing chart for further information. There is no relevant family history pertinent to the presenting complaint Exam Narrative: GENERAL: Well-appearing HEAD: Normocephalic, atraumatic. EYES: conjunctivae clear, and EOMI. ENT: Mucous membranes moist. Oropharynx without edema, erythema or lesions. NECK: Supple. No lymphadenopathy CHEST: Clear to auscultation. HEART: Regular rate and rhythm. SKIN: Warm, dry. Right lateral foot moderate redness, swelling c/w insect sting reaction; ppp. Nontender. CMS intact to foot/toes. NEURO: Alert and oriented x3. Course Course Emergency Course: Patient is aware of diagnosis, understands and agrees to treatment plan. Anticipatory guidance given. Patient agrees to follow-up as directed and is aware of reasons to seek care at the emergency department. Portions of this record may have been created with voice recognition software Level of Care: Express Care Visit Vital Signs Vital signs: Vital Signs Tempera
== END 2021-10-05 19:02 | disposition home or self-care (01) ==
PROVIDERS: Emergency Provider Nurse Practitioner Family
DX: T63.481A Toxic effect of venom of other arthropod, accidental (unintentional), initial encounter (principal); K21.9 Gastro-esophageal reflux disease without esophagitis; I10 Essential (primary) hypertension; Z85.46 Personal history of malignant neoplasm of prostate; F41.9 Anxiety disorder, unspecified; F32.A Depression, unspecified
CPT/HCPCS: 99213; G0463

== ENCOUNTER 2021-10-23 07:30 | Outpatient (CLI) | payer OTHER, SELFPAY ==
--- NOTE | ~2021-10-23 | NM_ITS ---
EXAM: NM gastric emptying study DATE: 10/23/2021 12:09 INDICATION: Regurgitation. Retained food in the stomach. TECHNIQUE: A gastric emptying study was performed using the methodology of [place] HANLEY, et al. J Nucl Med 2007; 48:568-572. The patient was given a meal consisting of 2 scrambled eggs labeled with 1.002 mCi Tc-99m sulfur colloid, 2 slices of toast, two packages of jam, and approximately 120 mL of water . Simultaneous anterior and posterior 1-min images of the abdomen were obtained with the patient supi ne at multiple time points over a total period of 4 hours. The geometric mean of anterior and posteri or views was determined, and the percentage retention was calculated for each time point. COMPARISON: None. FINDINGS: Gastric retention of the radiotracer-labeled meal was 63%, 36%, and 4% at the 1-hour, 2-hour, and 4-h our time points, respectively. With this technique, apparent rapid gastric emptying is suggested by < 30% gastric retention at 1 hour. Delayed gastric emptying is defined by gastric retention of >90% at 1 hour, >60% retention at 2 hours, or >10% retention at 4 hours. IMPRESSION: 1. Normal gastric emptying. Reviewed, dictated and finalized at location A. IMPRESSION: 1. Normal gastric emptying.
== END 2021-10-23 07:31 | disposition home or self-care (01) ==
PROVIDERS: Visit Provider Nurse Practitioner
DX: K31.89 Other diseases of stomach and duodenum (principal); K58.1 Irritable bowel syndrome with constipation; R11.10 Vomiting, unspecified; R14.0 Abdominal distension (gaseous)
CPT/HCPCS: 78264; A9541

== ENCOUNTER 2022-07-30 09:36 | Outpatient (CLI) | payer OTHER, SELFPAY ==
--- NOTE | ~2022-07-30 | CT_ITS ---
EXAMINATION: CT abdomen pelvis w con INDICATION: Abdominal distention TECHNIQUE: Computed tomographic images of the abdomen and pelvis were obtained after the administrati on of 100 cc of Omnipaque 350 intravenous contrast. The dose-length product (DLP) was 367.61 mGy-cm. Automated exposure control and iterative reconstruction technique were employed. COMPARISON: 09/01/2019 FINDINGS: Minimal dependent atelectasis is present in the lung bases. The heart size is normal. There is calcified coronary artery atherosclerosis. Punctate calcifications in an otherwise normal spleen likely represent healed granulomatous disease. The liver, pancreas, gallbladder, and adrenal glands a re normal. Cysts of the kidneys measure up to 3.5 cm on the right. There is calcified atherosclerosis of the aorta and many of the other arteries. No pathologically enlarged abdominal or pelvic lymph no rocky are identified. No free intraperitoneal gas or evidence of bowel obstruction. There is mild lumba r spondylosis. A moderate volume of colonic stool is present. IMPRESSION: 1. No CT correlate for the patient's symptoms. Reviewed, dictated and finalized at location A.
[2022-07-30 10:09] LABS: Estimated Glomerular Filt Rate 50
== END 2022-07-30 09:37 | disposition home or self-care (01) ==
PROVIDERS: Visit Provider Nurse Practitioner
DX: R14.0 Abdominal distension (gaseous) (principal); R11.10 Vomiting, unspecified; R10.814 Left lower quadrant abdominal tenderness; K58.1 Irritable bowel syndrome with constipation
CPT/HCPCS: 74177; Q9967

== ENCOUNTER 2022-10-29 01:19 | Day surgery (SDC) | payer OTHER, SELFPAY ==
[2022-09-18 13:38] VITALS: BMI 23.8
[2022-10-14 15:51] VITALS: BMI 23.8
--- NOTE | 2022-10-28 09:26 | WPDANESEPPF ---
Anes - Initial Pre Proc Eval Procedure: Operation Date: 10/29/22 07:30 Proposed Procedures p Colonoscopy - Lasha Cedeno MD Date/Time: 10/28/22 09:26 Surgeon: Lasha Cedeno MD Pre Op Diagnosis: Abdom.distension, IBS-C Patient Data Age: 71 Gender: M Height: 1.75 m Weight: 73 kg Allergies Allergy/AdvReac Type Severity Reaction Status Date / Time Fish Containing Products Allergy Intermediate Rash Verified 10/29/22 06:20 Penicillins Allergy Unknown Unknown Verified 10/29/22 06:20 Sulfa (Sulfonamide Allergy Unknown RASH AND Verified 10/29/22 06:20 Antibiotics) LEG PAIN Home Medications Medication Instructions Recorded Confirmed Type fluticasone propionate 50 1 spray intranasal DAILY 10/04/19 10/29/22 History mcg/actuation nasal spray,suspension lorazepam 1 mg tablet 1 mg PO DAILY PRN Anxiety 10/04/19 10/29/22 History minoxidil 2 % topical solution 1 ml topical DAILY 10/04/19 10/29/22 History (Rogaine) hrwlapme-vwb-tabfb acid 0.4 1 tablet PO DAILY 10/04/19 10/29/22 History mg-lycopene 300 mcg-lutein 250 mcg tablet (Centrum Silver) olopatadine 0.2 % eye drops 1 drp ophthalmic (eye) QA 10/04/19 10/29/22 History (Pataday Once Daily Relief) paroxetine HCl 40 mg tablet 40 mg PO QAM 10/04/19 10/29/22 History simethicone 250 mg capsule 250 mg PO TID PRN bloating 10/04/19 10/29/22 History triamterene 37.5 1 tablet PO QAM 10/04/19 10/29/22 History mg-hydrochlorothiazide 25 mg tablet linaclotide 290 mcg capsule 290 mcg PO DAILY #90 caps 07/17/22 10/29/22 Rx (Linzess) docusate sodium 50 mg capsule 100 mg PO QHS 08/22/22 10/29/22 History esomeprazole magnesium 20 mg 40 mg PO DAILY #180 caps 08/22/22 10/29/22 Rx capsule,delayed release (Nexium) famotidine 20 mg tablet (Pepcid) 20 mg PO QHS 08/22/22 10/29/22 History aspirin 81 mg capsule 81 mg PO DAILY 09/18/22 10/29/22 History Patient hx anesthesia problems: none Family hx anesthesia problems: none Results Review: All pre-operative results and documents have been reviewed as part of the pre-operative evaluation. [facility] Past Medical History Medical History Anxiety Depression GERD (gastroesophageal reflux disease) Hypertension Left lower quadrant abdominal tenderness Prostate cancer Regurgitation of food Retained food in stomach Surgical History Surgical History (Updated 10/28/22 @ 09:26 by Sreekanth Zuniga DO) History of tonsillectomy Social History Social History Smoking status: Never smoker Alcohol intake: current Substance use: never Substance use type: does not use Living arrangements: with family Gender identity (if verbalized by the patient): Male Spiritual care concerns: No Anes - Eval Final PreProcedure Day of Procedure 10/28/22 09:26 Patient weight: normal Heart: regular rate and rhythm Lungs: clear to auscultation and normal air movement Airway: Mallampati scale class II Neurological: alert and oriented Last oral intake: >/= 8 hours ASA classification: II Emergent: no Anesthetic plan: proceed Anesthesia type and monitoring: general GIVS and standard monitoring Results Review: All pre-operative results and documents have been reviewed as part of the pre-operative evaluation. Informed Consent: The patient's anesthetic plan and its attendant risks and benefits were discussed with the patient/family/POA. Questions were solicited and answers provided to the satisfaction of the patient/family/POA.
[2022-10-29 06:10] VITALS: BP 141/69; PULSE 61; RESP 18; TEMP 35.9; O2SAT 100; BMI 23.7
[2022-10-29] MEDS: LACTATED RINGERS 1,000 ML 150 ML IV CONT (06:30)
--- NOTE | 2022-10-29 07:31 | PM.HPGS ---
History of Present Illness History of Present Illness Consent: Risks, benefits, and alternatives have been discussed and questions answered. Patient agrees to proceed with procedure. Chief complaint: Abdom.distension, IBS-C Narrative: Rito Rodriguez is a 71 year old male Presents for colonoscopy. Patient reports ongoing difficulty with constipation. Currently on Linzess. This helps intermittently. Complains of abdominal bloating and distention. An occasional left lower quadrant discomfort. Previous colonoscopy 2016 was unremarkable. Patient presents today for follow-up examination. Family history is noncontributory. Review of Systems Review of Systems: Review of systems noncontributory. [facility] Past Medical History Medical History Anxiety Depression GERD (gastroesophageal reflux disease) Hypertension Left lower quadrant abdominal tenderness Prostate cancer Regurgitation of food Retained food in stomach Surgical History Surgical History (Updated 10/28/22 @ 09:26 by Sreekanth Zuniga DO) History of tonsillectomy Social History Social History Smoking status: Never smoker Alcohol intake: current Substance use: never Substance use type: does not use Living arrangements: with family Gender identity (if verbalized by the patient): Male Spiritual care concerns: No Meds Home Medications and Allergies Home Medications Medication Instructions Recorded Confirmed Type fluticasone propionate 50 1 spray intranasal DAILY 10/04/19 10/29/22 History mcg/actuation nasal spray,suspension lorazepam 1 mg tablet 1 mg PO DAILY PRN Anxiety 10/04/19 10/29/22 History minoxidil 2 % topical solution 1 ml topical DAILY 10/04/19 10/29/22 History (Rogaine) axavdqib-tvv-gctsz acid 0.4 1 tablet PO DAILY 10/04/19 10/29/22 History mg-lycopene 300 mcg-lutein 250 mcg tablet (Centrum Silver) olopatadine 0.2 % eye drops 1 drp ophthalmic (eye) QAM 10/04/19 10/29/22 History (Pataday Once Daily Relief) paroxetine HCl 40 mg tablet 40 mg PO QAM 10/04/19 10/29/22 History simethicone 250 mg capsule 250 mg PO TID PRN bloating 10/04/19 10/29/22 History triamterene 37.5 1 tablet PO QAM 10/04/19 10/29/22 History mg-hydrochlorothiazide 25 mg tablet linaclotide 290 mcg capsule 290 mcg PO DAILY #90 caps 07/17/22 10/29/22 Rx (Linzess) docusate sodium 50 mg capsule 100 mg PO QHS 08/22/22 10/29/22 History esomeprazole magnesium 20 mg 40 mg PO DAILY #180 caps 08/22/22 10/29/22 Rx capsule,delayed release (Nexium) famotidine 20 mg tablet (Pepcid) 20 mg PO QHS 08/22/22 10/29/22 History aspirin 81 mg capsule 81 mg PO DAILY 09/18/22 10/29/22 History Allergies Allergy/AdvReac Type Severity Reaction Status Date / Time Fish Containing Products Allergy Intermediate Rash Verified 10/29/22 06:20 Penicillins Allergy Unknown Unknown Verified 10/29/22 06:20 Sulfa (Sulfonamide Allergy Unknown RASH AND Verified 10/29/22 06:20 Antibiotics) LEG PAIN Vital Signs Vital Signs - 24 hr 10/29/22 06:10 Temperature 96.7 F L Pulse Rate 61 Respiratory Rate 18 Blood Pressure 141/69 H Pulse Oximetry 100 Oxygen Delivery Room Air Exam Narrative: Physical exam reveals patient to be alert. Vital signs stable. HEENT exam is unremarkable. Patient is anicteric. Lungs are clear to auscultation and percussion. Heart is without murmur or extra sounds. Abdomen bowel sounds are present soft nontender with no organomegaly. Digital external rectal exam normal. Assessment and Plan Assessment and plan (1) Irritable bowel syndrome with constipation: Code(s): K58.1 - Irritable bowel syndrome with constipation Status: Acute Assessment and Plan: Patient with ongoing constipation. This is felt to be consistent with irritable bowel syndrome. Currently on Linzess which will co
[2022-10-29 07:56] VITALS: BP 106/63; PULSE 54; RESP 17; O2SAT 100
[2022-10-29 08:06] VITALS: BP 119/70; PULSE 51; RESP 18; O2SAT 100
[2022-10-29 08:16] VITALS: BP 137/86; PULSE 51; RESP 17; O2SAT 94
== END 2022-10-29 08:20 | disposition home or self-care (01) ==
PROVIDERS: Visit Provider Internal Medicine Gastroenterology
PROC: 0DJD8ZZ Inspection of Lower Intestinal Tract, Via Natural or Artificial Opening Endoscopic (ICD-10-PCS; CPT 45378; principal; 2022-10-29 07:30)
DX: K58.1 Irritable bowel syndrome with constipation (principal); K57.30 Diverticulosis of large intestine without perforation or abscess without bleeding; K64.8 Other hemorrhoids; I10 Essential (primary) hypertension; K21.9 Gastro-esophageal reflux disease without esophagitis; F41.9 Anxiety disorder, unspecified; F32.A Depression, unspecified; Z85.46 Personal history of malignant neoplasm of prostate; Z79.82 Long term (current) use of aspirin
CPT/HCPCS: 45378; J2704; J7120

== ENCOUNTER 2022-11-26 23:34 | Emergency (ER) | payer OTHER, SELFPAY ==
[2022-11-26 23:50] VITALS: BP 130/68; PULSE 117; RESP 16; TEMP 37.9; O2SAT 97
--- NOTE | 2022-11-27 00:34 | PC.NURSE ---
Patient walked up to triage area and stated he would come back if his symptoms got worse.
== END 2022-11-27 00:34 | disposition left against medical advice (07) ==
LOC: ANHED 11-27 00:41
DX: R53.1 Weakness (principal)
CPT/HCPCS: 99199

== ENCOUNTER 2022-12-03 07:16 | Outpatient (CLI) | payer OTHER, SELFPAY ==
[2022-12-03 17:18] LABS: Alanine Aminotransferase 46 U/L (6-50); Albumin Level 4.3 g/dL (3.5-5.1); Alkaline Phosphatase 71 U/L (38-126); Anion Gap 7 mmol/L (8-16); Aspartate Amino Transferase 86 U/L (17-59); Bilirubin,Total 0.7 mg/dL (0.2-1.3); Blood Urea Nitrogen 22 mg/dL (9-20); Calcium 9.1 mg/dL (8.4-10.2); Carbon Dioxide 32 mmol/L (22-30); Chloride 97 mmol/L (98-107); Estimated Glomerular Filt Rate > 60; Glucose 109 mg/dL (65-110); Potassium 3.7 mmol/L (3.4-5.0); Sodium 136 mmol/L (137-145)
== END 2022-12-03 07:17 | disposition home or self-care (01) ==
LOC: ANHWCLAB 07:24
DX: Z00.00 Encounter for general adult medical examination without abnormal findings (principal); E78.5 Hyperlipidemia, unspecified
CPT/HCPCS: 36415; 80053